=== PATIENT | male | born 1975 | race Caucasian/White ===

== ENCOUNTER 2016-12-09 17:20 | Emergency (ER) | payer OTHER ==
[2016-12-09 17:45] VITALS: BP 119/84
[2016-12-09] MEDS ORDERED: SUBLIMAZE IV ONE ×2 (17:49→19:58)
[2016-12-09] MEDS ORDERED: SUBLIMAZE ONE (17:49)
[2016-12-09] MEDS ORDERED: ceFAZolin 2 GM in NACL 0.9% 100 ML IV ONE (17:49)
[2016-12-09] MEDS ORDERED: BOOSTRIX IM ONE (18:04)
--- NOTE | 2016-12-09 18:08 | Emergency Department Report ---
HPI - General Chief Complaint: Extremity Injury, Upper Time Seen by Provider: 12/09/16 17:49 - HPI HPI: This is a 41-year-old -[place] male, who is right-hand dominant, presents to the emergency department by EMS from work with what appears to be an open fracture of the left wrist. The patient was fixing an air conditioning unit when something he did released a large amount of pressure. He is unsure of the pressure itself caused his injury or if his arm was then pushed into some other object. All the patient knows is that he began having pain & large amount of blood coming from the left wrist what appears to be bone sticking out. He was given some fentanyl on route by EMS with some relief. He denies any other past medical history. He is unsure of the last time he had a tetanus vaccination ED Past Medical Hx - Past Medical History Previous Medical History?: No - Surgical History Past Surgical History?: Yes Additional Surgical History: facial - Social History Smoking Status: Never Smoker Substance Use Type: Alcohol, Marijuana ED Review of Systems ROS: Stated complaint: INJURY TO LEFT WRIST Other details as noted in HPI Comment: All other systems reviewed and negative Constitutional: denies: chills, fever Eyes: denies: eye pain, eye discharge, vision change ENT: denies: ear pain, throat pain Respiratory: denies: cough, shortness of breath, wheezing Cardiovascular: denies: chest pain, palpitations Gastrointestinal: denies: abdominal pain, nausea, diarrhea Genitourinary: denies: urgency, dysuria Musculoskeletal: arthralgia. denies: back pain Skin: other (laceration). denies: rash Neurological: denies: headache, weakness, paresthesias Physical Exam - Physical Exam Vital Signs: Vital Signs 12/09/16 17:40 Temperature 97.8 F Pulse Rate 64 Respiratory 16 Rate Blood Pressure 119/84 O2 Sat by Pulse 100 Oximetry Physical Exam: GENERAL: The patient is well-developed well-nourished. HEENT: Normocephalic. Atraumatic. Extraocular motions are intact. Patient has moist mucous membranes. NECK: Supple. Trachea is midline. CHEST/LUNGS: Clear to auscultation. There is no respiratory distress noted. HEART/CARDIOVASCULAR: Regular. There is no tachycardia. There is no gallop rub or murmur. ABDOMEN: Abdomen is soft, nontender. Patient has normal bowel sounds. There is no abdominal distention. SKIN: There is a 2.5-3 cm laceration to the radial side of the left wrist with visible bone to the superior portion. The laceration is mostly linear with a 1 cm But the inferior portion [place] and turns. NEURO: The patient is awake, alert, and oriented. The patient is cooperative. The patient has no focal neurologic deficits. The patient has normal speech and gait. MUSCULOSKELETAL: Tenderness palpation to the left wrist with the patient appears to have an open fracture. Radial pulse +2 over 4. Refill less than 2 seconds. Patient is able to flex and extend his fingers. ED Course Vital Signs 12/09/16 17:40 Temperature 97.8 F Pulse Rate 64 Respiratory 16 Rate Blood Pressure 119/84 O2 Sat by Pulse 100 Oximetry - Consultations Consultation #1: I spoke to an orthopedic hand specialist, Dr. Juanito Thacker, who looked at the x-rays and images and feels that it is a open fracture that requires more immediate intervention and he has accepted the patient for transfer to [facility]. 12/09/16 19:04 ED Medical Decision Making - Radiology Data Radiology results: image reviewed interpreted by me: X-ray of the left wrist shows a bony fragment just lateral to the carpal bones that is either a avulsion fracture of the scaphoid or an avulsion fracture with ligament tear. - Medical Decision Making 41-year-old male presents to the emergency department with an open fracture of the left wrist after he was doing something with an air conditioning unit that released a large amount of pressure in either the pressure itself injured him or his arm then swung and hit another solid object. X-rays show an avulsion fracture and what appears to be the scaphoid. Spoke to a hand surgeon through [facility] who accepted the patient for transfer. The patient was given sterile gauze and a thumb spica and we are waiting on transportation to bring him to [facility]. - Differential Diagnosis fracture, dislocation, laceration, contusion Critical Care Time: No Critical care attestation.: If time is entered above; I have spent that time in minutes in the direct care of this critically ill patient, excluding procedure time. ED Disposition Clinical Impression: Open wrist fracture Qualifiers: Encounter type: initial encounter Laterality: left Qualified Code(s): S62.102B - Fracture of unspecified carpal bone, left wrist, initial encounter for open fracture Laceration of wrist Qualifiers: Encounter type: initial encounter Laterality: left Qualified Code(s): S61.512A - Laceration without foreign body of left wrist, initial encounter Disposition: [id number]/TX-70 ANOTHER TYPE HLTHCARE Is pt being admited?: No Condition: Stable Referrals: PRIMARY CARE, [Primary Care Provider] - 3-5 Days Time of Disposition: 20:01
[2016-12-09] MEDS ORDERED: XYLOCAINE 2% INFILTRATI ONE (18:27)
[2016-12-09] MEDS ORDERED: NACL 0.9% 500 ML IR ONE (19:08)
--- NOTE | 2016-12-09 19:47 | XRay Report ---
FINAL REPORT EXAM: XR WRIST 3+V LT HISTORY: LEFT WRIST PAIN; extremity injury TECHNIQUE: AP, lateral, and oblique views of the left wrist PRIORS: None. FINDINGS: No evidence of acute fracture or dislocation is seen. The soft tissues demonstrate soft tissue disruption along the lateral wrist joint and radial styloid process with, likely related to laceration. This overlies the scaphoid as well. No radiopaque foreign bodies. Joint spaces are maintained. IMPRESSION: No acute bony abnormality identified. Soft tissue laceration overlying the radial styloid process and scaphoid.
== END 2016-12-09 21:52 | disposition other institution (70) ==
LOC: ED 17:20
DX: S62.102B Fracture of unspecified carpal bone, left wrist, initial encounter for open fracture (principal); S61.512A Laceration without foreign body of left wrist, initial encounter; F12.10 Cannabis abuse, uncomplicated; W22.8XXA Striking against or struck by other objects, initial encounter; Y93.89 Activity, other specified; Y99.8 Other external cause status; Y92.89 Other specified places as the place of occurrence of the external cause
CPT/HCPCS: 29125; 73110; 90471; 90715; 96365; 96375; 96376; 99285; J0690; J3010